=== PATIENT | male | born 1960 | race American Indian/Alaskan Native ===

== ENCOUNTER 2017-06-12 09:56 | Emergency (ER) | payer OTHER ==
[2017-06-12 12:44] VITALS: BP 160/120
[2017-06-12 13:10] LABS: Hematocrit 47.6 % (35.5-45.6); Hemoglobin 15.9 gm/dl (11.8-15.2); Mean Corpuscular HGB Conc 33 % (32-34); Mean Corpuscular Hemoglobin 31 pg (28-32); Mean Corpuscular Volume 92 fl (84-94); Red Cell Distribution Width 15.7 % (13.2-15.2)
[2017-06-12 14:02] LABS: Alanine Aminotransferase 10 units/L (7-56); Albumin 4.4 g/dL (3.9-5); BUN/Creatinine Ratio 11; Blood Urea Nitrogen 13 mg/dL (9-20); Calcium 9.4 mg/dL (8.4-10.2); Hemolysis Index 17
[2017-06-12 14:23] LABS: Band Neutrophils # (Manual) 0.2 K/mm3; Basophils % (Manual) 0 % (0.0-1.8); Eosinophils % (Manual) 0 % (0.0-4.3); Total Cells Counted 100
[2017-06-12 14:24] LABS: RBC Morphology Normal
[2017-06-12 14:30] LABS: Platelet Count 138 K/mm3 (140-440)
[2017-06-12] MEDS ORDERED: PROVENTIL IH ONE ×2 (14:53→17:42)
[2017-06-12] MEDS ORDERED: DUONEB *Not for PRN Use IH ONE ×2 (17:10→17:23)
== END 2017-06-12 18:28 | disposition left against medical advice (07) ==
LOC: ED 09:56
DX: R11.10 Vomiting, unspecified (principal); R51 Headache; Z53.21 Procedure and treatment not carried out due to patient leaving prior to being seen by health care provider
CPT/HCPCS: 36415; 80053; 85007; 85025

== ENCOUNTER 2017-09-25 10:00 | Inpatient (IN) | payer OTHER ==
[2017-09-25] MEDS ORDERED: ASPIRIN PO ONE (10:25)
[2017-09-25 11:20] LABS: Basophils # (Auto) 0.1 K/mm3 (0.0-0.1); Basophils % (Auto) 1.1 % (0.0-1.8); Eosinophils # (Auto) 0.2 K/mm3 (0.0-0.4); Eosinophils % (Auto) 3.6 % (0.0-4.3); Hematocrit 44.9 % (35.5-45.6); Lymphocytes # (Auto) 2.4 K/mm3 (1.2-5.4); Lymphocytes % (Auto) 40.7 % (13.4-35.0); Mean Corpuscular HGB Conc 34 % (32-34); Mean Corpuscular Hemoglobin 30 pg (28-32); Mean Corpuscular Volume 91 fl (84-94); Monocytes # (Auto) 0.4 K/mm3 (0.0-0.8); Monocytes % (Auto) 7.4 % (0.0-7.3); Red Blood Count 4.96 M/mm3 (3.65-5.03); Red Cell Distribution Width 15.4 % (13.2-15.2)
[2017-09-25 11:31] LABS: BUN/Creatinine Ratio 10; Blood Urea Nitrogen 11 mg/dL (9-20); Calcium 9.6 mg/dL (8.4-10.2); Hemolysis Index 45
[2017-09-25 12:03] LABS: Platelet Count 225 K/mm3 (140-440)
--- NOTE | 2017-09-25 20:57 | Emergency Department Report ---
HPI - General Chief Complaint: Chest Pain Time Seen by Provider: 09/25/17 20:44 - [facility] HPI: Room 6 The patient is a 57-year-old male presenting with chief complaint chest pain. The patient states for the past 2 weeks he's had intermittent anterior chest pain associated with shortness of breath mostly with exertion. The patient states his chest discomfort feels like a constriction/tightness. Patient admits to dyspnea on exertion. Patient denies nausea/vomiting or diaphoresis with pain. The patient states he's never had a stress test or cardiac catheterization Location: Chest Duration: Intermittent 2 weeks Quality: Tightness Severity: Currently 0/10 Modifying factors: Exertion usually brings on chest pain Context: [see above] Mode of transportation: unknown ED Past Medical Hx - Past Medical History Hx Hypertension: Yes Hx Asthma: Yes - Surgical History Past Surgical History?: No - Family History Family history: no significant (none 3 months) - Social History Smoking Status: Former Smoker Substance Use Type: None (denies illicit drug use), Alcohol (occasional) ED Review of Systems ROS: Stated complaint: CHEST PAIN Other details as noted in HPI Constitutional: denies: diaphoresis Respiratory: shortness of breath, SOB with exertion Cardiovascular: chest pain, dyspnea on exertion Gastrointestinal: denies: nausea, vomiting Physical Exam - Physical Exam Vital Signs: Vital Signs 09/25/17 10:22 Temperature 97.4 F L Pulse Rate 72 Respiratory 18 Rate Blood Pressure 161/117 Physical Exam: GENERAL: The patient is well-developed well-nourished male sitting on stretcher not appearing to be in acute distress. [] HEENT: Normocephalic. Atraumatic. Extraocular motions are intact. Patient has moist mucous membranes. NECK: Supple. Trachea midline CHEST/LUNGS: Clear to auscultation. There is no respiratory distress noted. HEART/CARDIOVASCULAR: Regular. There is no tachycardia. There is no gallop rub or murmur. ABDOMEN: Abdomen is soft, nontender. Patient has normal bowel sounds. There is no abdominal distention. SKIN: There is no rash. There is no diaphoresis. NEURO: The patient is awake, alert, and oriented. The patient is cooperative. The patient has normal speech MUSCULOSKELETAL: There is no evidence of acute injury. ED Course Vital Signs 09/25/17 10:22 Temperature 97.4 F L Pulse Rate 72 Respiratory 18 Rate Blood Pressure 161/117 ED Medical Decision Making - Lab Data Result diagrams: 09/25/17 10:48 09/25/17 10:48 Laboratory Tests 09/25/17 09/25/17 09/25/17 10:48 10:48 13:32 WBC 6.0 RBC 4.96 Hgb 15.0 Hct 44.9 MCV 91 MCH 30 MCHC 34 RDW 15.4 H Plt Count 225 Lymph % (Auto) 40.7 H [place] % (Auto) 7.4 H Eos % (Auto) 3.6 Baso % (Auto) 1.1 Lymph # 2.4 [place] # 0.4 Eos # 0.2 Baso # 0.1 Seg Neutrophils % 47.2 Seg Neutrophils # 2.8 Sodium 138 Potassium 4.6 Chloride 99.6 Carbon Dioxide 26 Anion Gap 17 BUN 11 Creatinine 1.1 Estimated GFR > 60 BUN/Creatinine Ratio 10 Glucose 69 L Calcium 9.6 Troponin T < 0.010 < 0.010 09/25/17 16:36 WBC RBC Hgb Hct MCV MCH MCHC RDW Plt Count Lymph % (Auto) [place] % (Auto) Eos % (Auto) Baso % (Auto) Lymph # [place] # Eos # Baso # Seg Neutrophils % Seg Neutrophils # Sodium Potassium Chloride Carbon Dioxide Anion Gap BUN Creatinine Estimated GFR BUN/Creatinine Ratio Glucose Calcium Troponin T < 0.010 - EKG Data -: EKG Interpreted by Me EKG shows normal: sinus rhythm Rate: normal - EKG Data When compared to previous EKG there are: previous EKG unavailable Interpretation: nonspecific ST-T wave [place] (T-wave inversion in lead aVL) - Radiology Data Radiology results: image reviewed (chest x-ray) interpreted by me: Chest x-ray-no focal infiltrates, no pneumothorax - Differential Diagnosis ACS, GERD, pericarditis, angina Critical care attestation.: If time is entered above; I have spent that time in minutes in the direct care of this critically ill patient, excluding procedure time. ED Disposition Clinical Impression: Chest pain Disposition: OP ADMIT IP TO THIS HOSP Is pt being admited?: Yes Does the pt Need Aspirin: Yes Condition: Fair Instructions: Chest Pain (ED) Referrals: PRIMARY CARE,MD [Primary Care Provider] - 3-5 Days Time of Disposition: 21:11 (hospitalist paged ( Dr. Bisi Mojica))
--- NOTE | 2017-09-25 21:52 | XRay Report ---
FINAL REPORT PROCEDURE: XR CHEST 1V AP TECHNIQUE: Chest radiograph anteroposterior view. CPT 10570 HISTORY: chest pain COMPARISON: No prior studies are available for comparison. FINDINGS: Heart: Normal. Mediastinum/Vessels: Normal. Lungs/Pleural space: Lungs are hyperinflated. There are no confluent infiltrates or mass lesions. Pleural spaces are clear. . Bony thorax: Mild degree levoscoliosis is noted. Life support devices: None. IMPRESSION: No acute pulmonary process COPD.
[2017-09-25] MEDS ORDERED: APRESOLINE IV ONE (22:04)
[2017-09-25] MEDS ORDERED: TYLENOL PO PRN (22:11)
[2017-09-25] MEDS ORDERED: SODIUM CHLORIDE FLUSH SYRINGE 10 ML IV PRN (22:11)
[2017-09-25] MEDS ORDERED: MORPHINE IV PRN (22:11)
[2017-09-25] MEDS ORDERED: APRESOLINE IV PRN (22:11)
[2017-09-25] MEDS ORDERED: ZOFRAN IV PRN (22:11)
--- NOTE | 2017-09-25 22:18 | History and Physical Report ---
History of Present Illness Date of examination: 09/25/17 History of present illness: 57-year-old male with a history of hypertension, noncompliant with medication comes emergency room with complaints of chest pain. Pain is in the left side of the chest which he describes as a constricting pain, intermittent over the last 10 days, lasting for an hour, intensity 5/10, no radiation, he cannot identify exacerbating or relieving factors. Admits to shortness of breath, no nausea vomiting, diaphoresis or palpitation Review of systems Constitutional: no weight loss, chills Ears, eyes, nose, mouth and throat: no nasal congestion, no nasal discharge, no sinus pressure, no vision change, no red eye. Neck: No neck pain or rigidity. Cardiovascular: no palpitations Respiratory: No cough Gastrointestinal: no abdominal pain, hematochezia Genitourinary : no dysuria, frequency , no hematuria Musculoskeletal: no joint swelling or muscle ache Integumentary: no rash, no pruritis Neurological: no parathesias, no numbness, no focal weakness Endocrine: no cold or heat intolerance, no polyuria or polydipsia Hematologic/Lymphatic: no easy bruising, no easy bleeding, no gland swelling Allergic/Immunologic: no urticaria, no angioedema. PAST MEDICAL HISTORY: Hypertension PAST SURGICAL HISTORY: None SOCIAL HISTORY: Quit tobacco use 3 months ago, no alcohol, drugs FAMILY HISTORY: Hypertension Medications and Allergies Allergies Allergy/AdvReac Type Severity Reaction Status Date / Time No Known Allergies Allergy Unverified 06/12/17 12:44 Active Meds: Active Medications Acetaminophen (Tylenol) 650 mg PO Q4H PRN PRN Reason: Pain MILD(1-3)/Fever >100.5/CARRANZA Enoxaparin Sodium (Lovenox) 30 mg SUB-Q QDAY KAILEY Hydralazine HCl (Apresoline) 5 mg IV Q6HR PRN PRN Reason: Hypertension Morphine Sulfate (Morphine) 2 mg IV Q4H PRN PRN Reason: Pain, Moderate (4-6) Ondansetron HCl (Zofran) 4 mg IV Q8H PRN PRN Reason: Nausea And Vomiting Sodium Chloride (Sodium Chloride Flush Syringe 10 Ml) 10 ml IV BID KAILEY Sodium Chloride (Sodium Chloride Flush Syringe 10 Ml) 10 ml IV PRN PRN PRN Reason: LINE FLUSH Exam - Physical Exam Narrative exam: Gen. appearance: Patient lying in bed, no apparent distress HEENT: Normocephalic, atraumatic, pupils equally round and reactive to light, extraocular movement intact, and no sclericterus,. No JVD or thyromegaly or nodule,neck supple, no carotid bruit ,mucous membranes moist, no exudate or erythema Heart: S1, S2, regular rate and rhythm Lungs: Clear to auscultation bilaterally, breathing comfortable Abdomen: Positive bowel sounds, nontender, nondistended, no organomegaly Extremity: No edema, cyanosis, clubbing Skin: No rash, nodules, warm, dry Neuro: Oriented 3, cranial nerves II-12 intact, speech is fluent, motor and sensory intact - Constitutional Vitals: Temp Pulse Resp BP Pulse Ox 98.0 F 87 18 176/114 100 09/25/17 21:32 09/25/17 22:09 09/25/17 21:32 09/25/17 22:09 09/25/17 21:32 Results - Labs CBC & Chem 7: 09/25/17 10:48 09/25/17 10:48 Labs: Abnormal lab results 09/25/17 09/25/17 Range/Units 10:48 10:48 RDW 15.4 H (13.2-15.2) % Lymph % (Auto) 40.7 H (13.4-35.0) % [place] % (Auto) 7.4 H (0.0-7.3) % Glucose 69 L (75-100) mg/dL - Imaging and Cardiology EKG: image reviewed Chest x-ray: image reviewed Assessment and Plan Assessment Hypertensive urgency Chest pain Plan Admit to medicine Start IV hydralazine as needed for blood pressure control, first dose now check cardiac enzymes, stress test IV morphine, aspirin, DVT prophylaxis
[2017-09-25 23:36] LABS: Creatine Kinase MB 2.7 ng/mL (0.0-4.0)
[2017-09-26 06:17] LABS: Basophils # (Auto) 0.1 K/mm3 (0.0-0.1); Basophils % (Auto) 1.3 % (0.0-1.8); Eosinophils # (Auto) 0.5 K/mm3 (0.0-0.4); Hemoglobin 14.9 gm/dl (11.8-15.2); Lymphocytes # (Auto) 2.6 K/mm3 (1.2-5.4); Lymphocytes % (Auto) 40.9 % (13.4-35.0); Mean Corpuscular HGB Conc 33 % (32-34); Mean Corpuscular Hemoglobin 30 pg (28-32); Mean Corpuscular Volume 91 fl (84-94); Monocytes # (Auto) 0.5 K/mm3 (0.0-0.8); Monocytes % (Auto) 8.1 % (0.0-7.3); Red Blood Count 4.93 M/mm3 (3.65-5.03); Red Cell Distribution Width 15.7 % (13.2-15.2)
[2017-09-26 06:22] LABS: Platelet Count 223 K/mm3 (140-440)
[2017-09-26 06:43] LABS: Creatine Kinase MB 2.4 ng/mL (0.0-4.0)
[2017-09-26 06:44] LABS: BUN/Creatinine Ratio 17; Blood Urea Nitrogen 17 mg/dL (9-20); Calcium 9.2 mg/dL (8.4-10.2); Hemolysis Index 5
[2017-09-26] MEDS ORDERED: SODIUM CHLORIDE FLUSH SYRINGE 10 ML IV SCH (10:00)
[2017-09-26] MEDS ORDERED: LOVENOX SUB-Q SCH (10:00)
[2017-09-26] MEDS ORDERED: PROAIR IH PRN (10:54)
[2017-09-26] MEDS ORDERED: PROVENTIL IH PRN (11:00)
--- NOTE | 2017-09-26 12:11 | Discharge Summary ---
Providers - Providers Date of Admission: 09/25/17 22:11 Attending physician: BARRY IRVING MD Primary care physician: STUDIO COORDINATOR Hospitalization Reason for admission: CHEST PAIN Condition: Stable Hospital course: 57-year-old male with a history of hypertension, noncompliant with medication comes emergency room with complaints of chest pain. Pain is in the left side of the chest which he describes as a constricting pain, intermittent over the last 10 days, lasting for an hour, intensity 5/10, no radiation, he cannot identify exacerbating or relieving factors. Admits to shortness of breath, no nausea vomiting, diaphoresis or palpitation. Patient seen and examined and proceeded to have a stress test done. This was read as normal, the patient reported shortness of breath and hx of Asthma But has not been on inhaler. COPD was noted based on Chest xray and patient hx. I have recommended outpatient follow. I have also recommended age appropriate cancer screening. Acute Respiratory failure COPD Hx of Tobacco use weight loss Hypertensive urgency Atypical chest pain secondary to costochondritis Disposition: DC- TO HOME OR SELFCARE Time spent for discharge: 35 mins Core Measure Documentation - Palliative Care Palliative Care/ Comfort Measures: Not Applicable - Core Measures Any of the following diagnoses?: none - VTE Discharge Requirements Deep Vein Thrombosis/Pulmonary Embolism Present on Admission: No Exam - Constitutional Vitals: Temp Pulse Resp BP Pulse Ox 97.9 F 80 18 120/88 95 09/26/17 07:56 09/26/17 10:00 09/26/17 07:56 09/26/17 07:56 09/26/17 10:00 General appearance: Present: no acute distress, cachectic - EENT Eyes: Present: PERRL, EOM intact ENT: hearing intact, clear oral mucosa - Neck Neck: Present: supple, normal ROM - Respiratory Respiratory effort: normal Respiratory: bilateral: CTA - Cardiovascular Rhythm: regular Heart Sounds: Present: S1 & S2. Absent: systolic murmur, diastolic murmur - Extremities Extremities: no ischemia, pulses intact, pulses symmetrical, No edema, normal temperature, normal color, Full ROM Peripheral Pulses: within normal limits - Abdominal General gastrointestinal: Present: soft, non-tender, non-distended, normal bowel sounds Male genitourinary: Present: normal - Integumentary Integumentary: Present: clear, warm, dry - Musculoskeletal Musculoskeletal: strength equal bilaterally - Psychiatric Psychiatric: appropriate mood/affect - Neurologic Neurologic: CNII-XII intact, moves all extremities - Allied Health Allied health notes reviewed: nursing Plan Activity: advance as tolerated, fall precautions Diet: regular Special Instructions: record daily weights, record daily BP diary Follow up with: PRIMARY CARE, [Primary Care Provider] - 3-5 Days Prescriptions: ALBUTEROL Inhaler [ProAir HFA Inhaler] 2 puff PO PRN #30 inha Aspirin 81 mg PO DAILY #30 tab.chew Prednisone [predniSONE 5 mg (6-Day Pack, 21 Tabs)] 5 mg PO .TAPER #1 tab.ds.pk
[2017-09-26 12:34] VITALS: BP 137/103
== END 2017-09-26 14:57 | disposition home or self-care (01) | DRG 205 ==
LOC: ED 10:00 → 4A 22:11
PROVIDERS: ADMIT Internal Medicine; ATTEND Internal Medicine
DX: M94.0 Chondrocostal junction syndrome [Tietze] (principal); J96.00 Acute respiratory failure, unspecified whether with hypoxia or hypercapnia; R07.9 Chest pain, unspecified; I16.0 Hypertensive urgency; J44.9 Chronic obstructive pulmonary disease, unspecified; I10 Essential (primary) hypertension; Z87.891 Personal history of nicotine dependence; Z82.49 Family history of ischemic heart disease and other diseases of the circulatory system; Z91.14 Patient's other noncompliance with medication regimen
CPT/HCPCS: 36415; 71045; 80048; 82550; 82553; 84484; 85025; 93005; 93010; 93017; 96374; J0360; J1650; J2930